=== PATIENT | female | born 1975 | race Caucasian/White ===

== ENCOUNTER 2021-11-02 17:58 | Outpatient (CLI) | payer BC ==
[2021-11-02 20:29] LABS: ALBUMIN 4.5 g/dL (3.2-5.5); CALCIUM 9.7 mg/dL (8.5-10.3); CREATININE 1.5 mg/dL (0.4-1.0); PHOSPHORUS 4.4 mg/dL (2.5-4.6); POTASSIUM 3.7 mmol/L (3.5-5.0)
[2021-11-02 21:07] LABS: TOTAL PROTEIN,URINE TIMED < 6 mg/dL
== END 2021-11-02 17:59 | disposition home or self-care (01) ==
LOC: LAB.S 17:58
PROVIDERS: ATTEND Specialist
DX: N18.32 Chronic kidney disease, stage 3b (principal)
CPT/HCPCS: 36415; 80069; 82570; 84156; 84550

== ENCOUNTER 2022-01-28 07:24 | Outpatient (CLI) | payer BC ==
[2022-01-28 15:01] LABS: CREATININE 1.5 mg/dL (0.4-1.0); PHOSPHORUS 3.4 mg/dL (2.5-4.6); POTASSIUM 3.9 mmol/L (3.5-5.0); URIC ACID 4.9 mg/dL (2.6-7.2)
== END 2022-01-28 07:25 | disposition home or self-care (01) ==
LOC: LAB.S 07:24
PROVIDERS: ATTEND Specialist
DX: N17.9 Acute kidney failure, unspecified (principal); N18.32 Chronic kidney disease, stage 3b
CPT/HCPCS: 36415; 80069; 84550

== ENCOUNTER 2022-06-03 07:30 | Outpatient (CLI) | payer BC ==
[2022-06-03 15:04] LABS: ALBUMIN 3.9 g/dL (3.2-5.5); CALCIUM 9.1 mg/dL (8.5-10.3); CREATININE 1.4 mg/dL (0.4-1.0); PHOSPHORUS 2.5 mg/dL (2.5-4.6); POTASSIUM 4.1 mmol/L (3.5-5.0); URIC ACID 4.3 mg/dL (2.6-7.2)
[2022-06-03 15:33] LABS: CREATININE,URINE 29.6 mg/dL; PROTEIN/CREATININE RATIO,URINE 0.2 (<=0.2)
== END 2022-06-03 07:31 | disposition home or self-care (01) ==
LOC: LAB.S 07:30
PROVIDERS: ATTEND Specialist
DX: N17.9 Acute kidney failure, unspecified (principal); N18.32 Chronic kidney disease, stage 3b
CPT/HCPCS: 36415; 80069; 82570; 83970; 84156; 84550

== ENCOUNTER 2022-10-04 07:52 | Outpatient (CLI) | payer BC ==
[2022-10-04 15:34] LABS: CREATININE,URINE 38.4 mg/dL; PROTEIN/CREATININE RATIO,URINE 0.3 (<=0.2)
[2022-10-04 15:55] LABS: ALBUMIN 4.1 g/dL (3.2-5.5); BUN - BLOOD UREA NITROGEN 17 mg/dL (6-20); CALCIUM 9.4 mg/dL (8.5-10.3); CARBON DIOXIDE - CO2 28 mmol/L (21-32); CHLORIDE 106 mmol/L (101-111); CHOL/HDL RATIO 2.7 (<4.4); CHOLESTEROL 156 mg/dL; CREATININE 1.5 mg/dL (0.4-1.0); GFR - MDRD 37 (>89); GLUCOSE 102 mg/dL (70-100); HDL CHOLESTEROL 57 mg/dL; LDL CHOLESTEROL,CALCULATED 74 mg/dL; LDL/HDL RATIO 1.3 (<4.4); PHOSPHORUS 3.1 mg/dL (2.5-4.6); POTASSIUM 4.1 mmol/L (3.5-5.0); SODIUM 138 mmol/L (135-145); TRIGLYCERIDES 125 mg/dL; URIC ACID 4.4 mg/dL (2.6-7.2); VLDL CHOLESTEROL 25 mg/dL
== END 2022-10-04 07:53 | disposition home or self-care (01) ==
LOC: LAB.S 07:52
PROVIDERS: ATTEND Specialist
DX: N18.32 Chronic kidney disease, stage 3b (principal); E78.5 Hyperlipidemia, unspecified
CPT/HCPCS: 36415; 80061; 80069; 81599; 82570; 83721; 83970; 84156; 84244; 84550

== ENCOUNTER 2023-02-13 14:29 | Outpatient (CLI) | payer BC ==
--- NOTE | 2023-02-13 15:12 | XRAY Report ---
PROCEDURE: Ankle 3 View LT INDICATIONS: LEFT ANKLE PAIN TECHNIQUE: 3 views of the ankle were acquired. COMPARISON: None. FINDINGS: Bones: No fractures or dislocations. Ankle mortise is normally aligned. No suspicious bony lesions . Calcaneal spurring. Soft tissues: No tibiotalar joint effusion. Achilles tendon appears normal. Soft tissue swelling o tarsha the lateral malleolus. IMPRESSION: No acute bony abnormality. Soft tissue swelling over the lateral malleolus. Reviewed by: Shelbi Akbar MD on 02/13/2023 3:11 PM PDT Approved by: Shelbi Akbar MD on 02/13/2023 3:11 PM PDT Station ID: [id number]
== END 2023-02-13 23:59 | disposition home or self-care (01) ==
LOC: DI.S 14:29
PROVIDERS: ATTEND Physician Assistant
DX: M25.572 Pain in left ankle and joints of left foot (principal)

== ENCOUNTER 2023-05-19 07:06 | Outpatient (CLI) | payer BC ==
[2023-05-19 15:22] LABS: ALBUMIN 4.4 g/dL (3.2-5.5); CALCIUM 9.2 mg/dL (8.5-10.3); CREATININE 1.5 mg/dL (0.6-1.3); PHOSPHORUS 2.9 mg/dL (2.5-5.0)
[2023-05-19 15:23] LABS: CREATININE,URINE 27.2 mg/dL; PROTEIN/CREATININE RATIO,URINE 0.5 (<=0.2)
== END 2023-05-19 07:07 | disposition home or self-care (01) ==
LOC: LAB.S 07:06
PROVIDERS: ATTEND Specialist
DX: N17.9 Acute kidney failure, unspecified (principal); N18.32 Chronic kidney disease, stage 3b
CPT/HCPCS: 36415; 80069; 82570; 83970; 84156; 84550

== ENCOUNTER 2023-07-11 07:35 | Outpatient (CLI) | payer BC ==
[2023-07-11 15:50] LABS: ALBUMIN 4.4 g/dL (3.2-5.5); CALCIUM 9.5 mg/dL (8.5-10.3); CREATININE 1.6 mg/dL (0.6-1.3); URIC ACID 4.9 mg/dL (2.3-6.6)
== END 2023-07-11 07:36 | disposition home or self-care (01) ==
LOC: LAB.S 07:35
PROVIDERS: ATTEND Specialist
DX: N18.32 Chronic kidney disease, stage 3b (principal)
CPT/HCPCS: 36415; 80069; 84550

== ENCOUNTER 2023-08-29 07:12 | Outpatient (CLI) | payer BC ==
[2023-08-29 15:53] LABS: ALBUMIN 4.1 g/dL (3.2-5.5); CALCIUM 8.9 mg/dL (8.5-10.3); CREATININE 1.4 mg/dL (0.6-1.3); PHOSPHORUS 2.9 mg/dL (2.5-5.0); POTASSIUM 4.1 mmol/L (3.5-4.5); URIC ACID 4.3 mg/dL (2.3-6.6)
== END 2023-08-29 07:13 | disposition home or self-care (01) ==
LOC: LAB.S 07:12
PROVIDERS: ATTEND Specialist
DX: N17.9 Acute kidney failure, unspecified (principal); N18.32 Chronic kidney disease, stage 3b
CPT/HCPCS: 36415; 80069; 84550

== ENCOUNTER 2023-11-21 07:34 | Outpatient (CLI) | payer BC ==
[2023-11-21 15:42] LABS: ALBUMIN 4.3 g/dL (3.2-5.5); CALCIUM 9.7 mg/dL (8.5-10.3); CREATININE 1.5 mg/dL (0.6-1.3); PHOSPHORUS 2.8 mg/dL (2.5-5.0); POTASSIUM 4.1 mmol/L (3.5-4.5); URIC ACID 4.9 mg/dL (2.3-6.6)
== END 2023-11-21 07:35 | disposition home or self-care (01) ==
LOC: LAB.S 07:34
PROVIDERS: ATTEND Specialist
DX: N17.9 Acute kidney failure, unspecified (principal); N18.32 Chronic kidney disease, stage 3b
CPT/HCPCS: 36415; 80069; 84550

== ENCOUNTER 2024-02-11 10:53 | Outpatient (CLI) | payer BC ==
[2024-02-11 15:55] LABS: ALBUMIN 4.4 g/dL (3.2-5.5); CALCIUM 9.6 mg/dL (8.5-10.3); CREATININE 1.4 mg/dL (0.6-1.3); PHOSPHORUS 2.3 mg/dL (2.5-5.0); URIC ACID 4.4 mg/dL (2.3-6.6)
[2024-02-11 16:35] LABS: CREATININE,URINE 16.4 mg/dL; PROTEIN/CREATININE RATIO,URINE 0.9 (<=0.2)
== END 2024-02-11 10:54 | disposition home or self-care (01) ==
LOC: LAB.S 10:53
PROVIDERS: ATTEND Specialist
DX: N18.32 Chronic kidney disease, stage 3b (principal)
CPT/HCPCS: 36415; 80069; 82570; 84156; 84550